=== PATIENT | female | born 1970 | race American Indian/Alaskan Native ===

== ENCOUNTER 2018-04-27 23:42 | Inpatient (IN) | payer BC ==
[2018-04-27 23:52] VITALS: BMI 38.2
[2018-04-28 00:50] LABS: BASO # 0.02 K/mm3 (0.0-2.0); BASO % 0.3 % (0.0-3.0); EOS # 0.1 (0.0-0.7); EOS % 2.4 % (1.5-5.0); GRAN # 2.91 (1.4-6.5); GRAN % 49.7 % (50.0-68.0); HEMOGLOBIN 11.8 g/dL (12.0-16.0); LYMPH # 2.5 (1.2-3.4); LYMPH % 41.8 % (22.0-35.0); MEAN CELL VOLUME 85.9 fl (80.0-105.0); MEAN CORPUSCULAR HEMOGLOBIN 29.1 pg (25.0-35.0); MEAN CORPUSCULAR HGB CONC 33.9 g/dl (31.0-37.0); MEAN PLATELET VOLUME 9.7 fl (7.0-11.0); MONO # 0.3 (0.1-0.6); MONO % 5.8 % (1.0-6.0); RBC 4.05 10^6/uL (3.5-6.1); RED CELL DISTRIBUTION WIDTH 12.5 % (11.5-14.5); WHITE BLOOD COUNT 5.9 10^3/ul (4.5-11.0)
[2018-04-28 00:57] LABS: VENOUS BLOOD GAS BASE EXCESS 2.9 mmol/L (0.0-2.0); VENOUS BLOOD GAS PO2 46 mm/Hg (30-55); VENOUS BLOOD PH 7.35 (7.32-7.43)
[2018-04-28 01:07] LABS: ALB/GLOB RATIO 1.4 (1.1-1.8); ALBUMIN 3.9 g/dL (3.0-4.8); ALT/SGPT 12 U/L (7-56); AST/SGOT 17 U/L (14-36); BLOOD UREA NITROGEN 12 mg/dL (7-21); CALCIUM 9.1 mg/dL (8.4-10.5); GFR NON-AFRICAN AMERICAN > 60
--- NOTE | 2018-04-28 01:16 | ED PDOC ---
Arrival/HPI - General Chief Complaint: Dizziness/Lightheaded Time Seen by Provider: 04/28/18 00:02 Historian: Patient - History of Present Illness Narrative History of Present Illness (Text): 04/28/18 01:01 47 year old female, whose past medical history includes hypertension, lymphedema , vertigo asymptomatic 3-4 years, and chronic back pain on Oxycodone, presents to the emergency department for evaluation. Patient was having dinner while sitting down when she began to feel the room spinning sensation and light- headed. Patient then began walking to her bedroom and fell landing on her right shoulder. She also hit the right side of her head on the door. Patient reports right shoulder pain, still feel dizzy with nausea, and headache, but denies any LOC, blurry vision, fever, chills, cough, chest pain, shortness of breath, vomiting, diarrhea, GI bleed, urinary symptoms, back pain, neck pain, focal weakness or numbness, or any other complaints. Symptom Onset: Sudden Activities at Onset: Light Context: Home Past Medical History - Provider Review Nursing Documentation Reviewed: Yes - Neurological Hx Vertigo: Yes - Psychiatric Hx Substance Use: No Family/Social History - Physician Review Nursing Documentation Reviewed: Yes Family/Social History: No Known Family HX Smoking Status: Never Smoked Hx Alcohol Use: No Hx Substance Use: No Allergies/Home Meds Allergies/Adverse Reactions: Allergies banana Allergy (Verified 04/27/18 23:51) ANAPHYLAXIS citric acid Allergy (Verified 04/27/18 23:51) ANAPHYLAXIS ibuprofen Allergy (Verified 04/27/18 23:51) ANAPHYLAXIS Sulfa (Sulfonamide Antibiotics) Allergy (Verified 04/27/18 23:51) ANAPHYLAXIS Review of Systems - Physician Review All systems were reviewed & negative as marked: Yes - Review of Systems Eyes: absent: Vision Changes Respiratory: absent: SOB, Cough Cardiovascular: absent: Chest Pain Gastrointestinal: Nausea. absent: Diarrhea, Vomiting Genitourinary Female: absent: Dysuria, Frequency, Hematuria Musculoskeletal: Other (right side shoulder pain). absent: Back Pain, Neck Pain Neurological: Headache, Dizziness. absent: Focal Weakness, Other (LOC) Physical Exam Vital Signs Reviewed: Yes Vital Signs Temp Pulse Resp BP Pulse Ox 04/28/18 00:02 97.9 F 52 L 18 123/75 99 Temperature: Afebrile Blood Pressure: Normal Pulse: Bradycardic Respiratory Rate: Normal Appearance: Positive for: Well-Appearing, Non-Toxic, Comfortable Pain Distress: None Mental Status: Positive for: Alert and Oriented X 3 - Systems Exam Head: Present: Atraumatic, Normocephalic Pupils: Present: PERRL Extroacular Muscles: Present: EOMI. No: Other (No nystagmus) Conjunctiva: Present: Normal Mouth: Present: Moist Mucous Membranes Neck: Present: Normal Range of Motion Respiratory/Chest: Present: Clear to Auscultation, Good Air Exchange. No: Respiratory Distress, Accessory Muscle Use Cardiovascular: Present: Regular Rate and Rhythm, Normal S1, S2. No: Murmurs Abdomen: No: Tenderness, Distention, Peritoneal Signs Back: Present: Normal Inspection Upper Extremity: Present: Normal Inspection, Normal ROM, NORMAL PULSES. No: Cyanosis, Edema, Deformity Lower Extremity: Present: Edema (2+ pitting edema) Neurological: Present: GCS=15, CN II-XII Intact, Speech Normal Skin: Present: Warm, Dry, Normal Color. No: Rashes Psychiatric: Present: Alert, Oriented x 3, Normal Insight, Normal Concentration Medical Decision Making ED Course and Treatment: 04/28/18 01:21 Impression: 47 year old female presents complaining of feeling room spinning sensation and light-headed. Patient also complaining of right shoulder pain s/p fall walking to her room landing on her shoulder and hitting the right side of head on a door. Plan: -- VBG -- CT Head w/o Contrast -- EKG -- Labs -- Chest X-ray -- Shoulder Right X-ray -- Urinalysis -- POC Urine Test -- Reassess and disposition Progress Notes: EXAM: CT Head Without Intravenous Contrast Dictated and Authenticated by: Tyler Cadet MD 04/28/2018 2:02 AM Eastern Time IMPRESSION: No acute findings. 04/28/18 02:23 Uhcg (-) EKG : SB at 52 bpm, no acute ST changes, as read by PA CXR Impression: As read by me, NAD Shoulder Right X-ray Impression: As read by me, negative for fracture or dislocation. Labs reviewed: Troponin negative. BNP negative. Urinalysis within normal limits. 04/28/18 02:25 Discussed with results and plan with patient. Advised further observations for symptomatic bradycardia, dizziness, and vertigo. Patient and family agree with the plan. 04/28/18 02:[address] Lopez who is aware and agrees with the plan. Accepts patient into hospitalist service. - Lab Interpretations Lab Results: 04/28/18 00:38 04/28/18 00:38 Lab Results 04/28/18 01:17: Urine Color Yellow, Urine Appearance Sl cloudy, Urine pH 6.0, Ur Specific [place] >= 1.030, Urine Protein Trace H, Urine Glucose (UA) Negative , Urine Ketones Trace H, Urine Blood Negative, Urine Nitrate Negative, Urine Bilirubin Negative, Urine Urobilinogen 1.0 H, Ur Leukocyte Esterase Negative, Urine RBC 0 - 2, Urine WBC 0 - 2, Ur Epithelial Cells 1 - 3, Urine Bacteria Rare 04/28/18 00:38: D-Dimer, Quantitative < 200 04/28/18 00:38: NT-Pro-B Natriuret Pep 63.9 04/28/18 00:38: Sodium 147, Chloride 108 H, Potassium 3.9, Carbon Dioxide 29, Anion Gap 14, BUN 12, Creatinine 0.7, Est GFR ( Amer) > 60, Est GFR (Non- Af Amer) > 60, Random Glucose 96, Calcium 9.1, Magnesium 2.0, Total Bilirubin 0.3, AST 17, ALT 12, Alkaline Phosphatase 59, Lactate Dehydrogenase 484, Total Creatine Kinase 55, Troponin I < 0.01, Total Protein 6.8, Albumin 3.9, Globulin 2.9, Albumin/Globulin Ratio 1.4 04/28/18 00:38: pO2 46, VBG pH 7.35, VBG pCO2 54.0, VBG HCO3 29.8 H, VBG Total CO2 31.5 H, VBG O2 Sat (Calc) 83.9 H, VBG Base Excess 2.9 H, VBG Potassium 3.8, Sodium 142.0, Chloride 109.0 H, Glucose 97, Lactate 0.7, FiO2 21.0, Venous Blood Potassium 3.8 04/28/18 00:38: WBC 5.9, RBC 4.05, Hgb 11.8 L, Hct 34.8 L, MCV 85.9, MCH 29.1, MCHC 33.9, RDW 12.5, Plt Count 199, MPV 9.7, Gran % 49.7 L, Lymph % (Auto) 41.8 H, [place] % (Auto) 5.8, Eos % (Auto) 2.4, Baso % (Auto) 0.3, Gran # 2.91, Lymph # (Auto) 2.5, [place] # (Auto) 0.3, Eos # (Auto) 0.1, Baso # (Auto) 0.02 I have reviewed the lab results: Yes - RAD Interpretation Radiology Orders: 04/28/18 00:03 CHEST TWO VIEWS (PA/LAT) [RAD] Stat 04/28/18 00:08 HEAD W/O CONTRAST [CT] Stat SHOULDER RIGHT [RAD] Stat - EKG Interpretation Interpreted by ED Physician: Yes Type: 12 lead EKG - Medication Orders Current Medication Orders: Acetaminophen (Tylenol 325mg Tab) 650 mg PO Q6H PRN PRN Reason: Pain, Mild (1-3) Albuterol/Ipratropium (Duoneb 3 Mg/0.5 Mg (3 Ml) Ud) 3 ml IH [id number] PRN PRN Reason: Shortness of Breath Cyclobenzaprine HCl (Flexeril) 5 mg PO TID PRN PRN Reason: muscle cramp Famotidine (Pepcid) 40 mg PO HS [facility] Last Admin: 04/28/18 21:16 Dose: 40 mg Heparin Sodium (Porcine) (Heparin) 5,000 units SC Q8 CHARLES PRN Reason: Protocol Last Admin: 04/28/18 21:15 Dose: 5,000 units Subcutaneous Administrations Document 04/28/18 21:15 CDL (Rec: 04/28/18 21:16 CDL [id number]) Injection Site MAR Injection Site Right Abdomen Charges for Administration # of Subcutaneous Administrations 1 Lisinopril (Zestril) 20 mg PO DAILY [facility] Last Admin: 04/28/18 09:53 Dose: 20 mg MAR Pulse and Blood Pressure Document 04/28/18 09:53 MARY (Rec: 04/28/18 09:53 MARY [id number]) Pulse Pulse Rate (60-90) 61 Blood Pressure Blood Pressure (100/60-150/90) 132/78 Oxycodone HCl (Oxycodone Immediate Release Tab) 30 mg PO Q4H PRN PRN Reason: Pain, severe (8-10) Last Admin: 04/28/18 21:16 Dose: 30 mg MAR Pain Assessment Document 04/28/18 21:16 CDL (Rec: 04/28/18 21:16 CDL [id number]) Pain Reassessment Is this a pain reassessment? No Sleep Is patient sleeping during reassessment? No Presence of Pain Presence of Pain Yes Pain Scale Used Pain Scale Used Numeric Location Pain Location Body Site Generalized Description Description Constant Intensity of Pain at present 8 Pain Behavior Moaning Restlessness Alleviating Factors/Management Medication Techniques Alleviating Factors Medication Pantoprazole Sodium (Protonix Ec Tab) 40 mg PO ONCE ONE Stop: 04/29/18 23:41 Discontinued Medications Al Hydrox/Mg Hydrox/Simethicone (Maalox Plus 30 Ml) 30 ml PO ONCE ONE Stop: 04/28/18 23:42 Last Admin: 04/28/18 23:50 Dose: 30 ml Morphine Sulfate (Morphine) 2 mg IVP STAT STA Stop: 04/28/18 04:47 Last Admin: 04/28/18 07:07 Dose: 2 mg MAR Pain Assessment Document 04/28/18 07:07 FG (Rec: 04/28/18 07:08 FG [id number]) Pain Reassessment Is this a pain reassessment? Yes Sleep Is patient sleeping during reassessment? No Presence of Pain Presence of Pain Yes Pain Scale Used Pain Scale Used Numeric Location Upper or Lower Lower Pain Location Body Site Back Description Description Constant Intensity of Pain at present 9 Pain Behavior Moaning Guarding Irritability Aggravating Factors Changing Position Contant Alleviating Factors/Management Medication Techniques Alleviating Factors Medication Pain not relieved and LIP/MD was No notified IVP Administration Document 04/28/18 07:07 FG (Rec: 04/28/18 07:08 FG [id number]) Charges for Administration # of IVP Administrations 1 Oxycodone HCl (Oxycodone Immediate Release Tab) 30 mg PO ONCE STA Stop: 04/28/18 03:05 Last Admin: 04/28/18 03:25 Dose: 30 mg MAR Pain Assessment Document 04/28/18 03:25 AD (Rec: 04/28/18 03:25 AD [id number]) Pain Reassessment Is this a pain reassessment? No Presence of Pain Presence of Pain Yes Pain Scale Used Pain Scale Used Numeric Location Pain Location Body Site Back Description Intensity of Pain at present 8 Pain Behavior Facial Grimacing Re-Assess: STEPHANIE Pain Assessment Document 04/28/18 04:25 FG (Rec: 04/28/18 07:09 FG [id number]) Pain Reassessment Is this a pain reassessment? Yes Sleep Is patient sleeping during reassessment? No Presence of Pain Presence of Pain Yes Pain Scale Used Pain Scale Used Numeric Location Upper or Lower Lower Pain Location Body Site Back Description Description Constant Intensity of Pain at present 9 Pain Behavior Moaning Aggravating Factors ADL's Changing Position Alleviating Factors/Management Medication Techniques Alleviating Factors Medication Pain not relieved and LIP/MD was No notified - PA / PIPELINE INTEGRITY ENGINEER / Resident Statement MD/DO has reviewed & agrees with the documentation as recorded. - Scribe Statement The provider has reviewed the documentation as recorded by the Losibnicolás Butler Provider Scribe Attestation: All medical record entries made by the Losibnicolás were at my direction and personally dictated by me. I have reviewed the chart and agree that the record accurately reflects my personal performance of the history, physical exam, medical decision making, and the department course for this patient. I have also personally directed, reviewed, and agree with the discharge instructions and disposition. Disposition/Present on Arrival - Present on Arrival Any Indicators Present on Arrival: No History of DVT/PE: No History of Uncontrolled Diabetes: No Urinary Catheter: No History of Decub. Ulcer: No History Surgical Site Infection Following: None - Disposition Have Diagnosis and Disposition been Completed?: Yes Diagnosis: Bradycardia, Vertigo Disposition: HOSPITALIZED Disposition Time: 02:15 Patient Plan: Observation Patient Problems: Current Active Problems Problem Status Onset Abnormal CT of brain Acute Bradycardia Acute Vertigo Acute Light headedness Resolved Condition: FAIR
[2018-04-28 01:18] LABS: TROPONIN I < 0.01 ng/mL
[2018-04-28 01:47] LABS: URINE BILIRUBIN NEGATIVE (NEGATIVE); URINE BLOOD NEGATIVE (NEGATIVE); URINE GLUCOSE (UA) NEGATIVE (NEGATIVE); URINE LEUKOCYTE ESTERASE NEGATIVE Leu/uL (NEGATIVE); URINE PROTEIN TRACE mg/dL (<30 mg/dL)
[2018-04-28 01:53] LABS: URINE COLOR YELLOW (YELLOW)
[2018-04-28 01:54] LABS: URINE APPEARANCE SL CLOUDY (CLEAR)
[2018-04-28 02:00] LABS: URINE BACTERIA RARE (NEG); URINE RBC 0 - 2 /hpf (0-2); URINE WBC 0 - 2 /hpf (0-6)
[2018-04-28] MEDS ORDERED: oxyCODONE 30 mg Immediate Release Tab PO STA (03:04)
[2018-04-28] MEDS ORDERED: Morphine 2 mg/ml ISec IVP STA (04:46)
--- NOTE | 2018-04-28 05:00 | CP.PCM.HP ---
<Rosette Dickinson - Last Filed: 04/28/18 05:19> History of Present Illness - History of Present Illness History of Present Illness: Rosette Dickinson PGY-1 for Hospitalist's Service CC: dizzy spell a/w lightheadedness HPI: Patient is a 47 yo female with PMH IN, HTN, spinal stenosis, disc herniation, asthma, vertigo, and lymphedema who presents to hospital for evaluation of lightheadedness that led to a fall at home. Patient states the symptoms started at 8:30 pm on 04/27 after dinner when she was trying to go to her bedroom. She began feeling lightheaded which caused her to fall hitting her right shoulder and right head on the door in the process. Patient's fiance at bedside confirmed that patient did not have LOC, post-ictal confusion , or any foaming/tonic-clonic movements. Patient says her lightheadedness has resolved but is having shoulder and head pain at the site of the fall. She describes the back pain as constant and chronic, head pain as throbbing, and shoulder pain as sharp. Patient has increased stress at home secondary to daughter moving in with recently delivered baby hindering her appetite intake and amount of sleep. Patient denies past episodes of any similar symptoms but does mention that she has a history of vertigo with last episode over 2-3 years ago. Patient does not take any medications for vertigo currently. Patient denies tinnitus, ear pain, fevers, chills, chest pain, sob, n/v, constipation or diarrhea, urinary symptoms, headaches, lightheadedness, dizziness, numbness or tingling. Patient does admit to head pain, back pain, right shoulder pain, and paresthesias. PMH- IN, HTN, spinal stenosis, disc herniation, asthma, vertigo, and lymphedema PSH- Cardiac Cath; Gastric bypass (mar 2017); cholecystectomy (6 years ago) FH: DM (Mom and Dad) Meds: Lisinopril 20mg po daily, oxycodon 30mg po q4h, tylenol; flexeril; quinine 324mg po daily Allergies: Ibuprofen, sulfa drugs, citric acid, bananas Social: Denies alcohol, tobacco, and drug use; lives home with family PMD: Dr. Keys Code: Full Code Present on Admission - Present on Admission Any Indicators Present on Admission: No Review of Systems - Review of Systems Review of Systems: 12 point ROS obtained as stated in HPI Past Patient History - Past Social History Smoking Status: Never Smoked - NEUROLOGICAL Hx Vertigo: Yes - PSYCHIATRIC Hx Substance Use: No Meds Allergies/Adverse Reactions: Allergies Allergy/AdvReac Type Severity Reaction Status Date / Time banana Allergy ANAPHYLAXIS Verified 04/27/18 23:51 citric acid Allergy ANAPHYLAXIS Verified 04/27/18 23:51 ibuprofen Allergy ANAPHYLAXIS Verified 04/27/18 23:51 Sulfa (Sulfonamide Allergy ANAPHYLAXIS Verified 04/27/18 23:51 Antibiotics) Physical Exam - Constitutional Appears: Non-toxic, No Acute Distress - Head Exam Head Exam: NORMAL INSPECTION, NORMOCEPHALIC - Eye Exam Eye Exam: EOMI, Normal appearance. absent: Nystagmus, Scleral icterus Pupil Exam: NORMAL ACCOMODATION - ENT Exam ENT Exam: Mucous Membranes Moist, Normal Exam - Neck Exam Neck exam: Positive for: Full Rom, Normal Inspection. Negative for: Tenderness - Respiratory Exam Respiratory Exam: Clear to Auscultation Bilateral, NORMAL BREATHING PATTERN. absent: Rales, Rhonchi, Wheezes - Cardiovascular Exam Cardiovascular Exam: Bradycardia, REGULAR RHYTHM, +S1, +S2 - GI/Abdominal Exam GI & Abdominal Exam: Normal Bowel Sounds, Soft. absent: Distended, Firm, Guarding, Tenderness - Extremities Exam Extremities exam: Positive for: normal inspection, pedal edema. Negative for: calf tenderness - Back Exam Back exam: NORMAL INSPECTION, tenderness, vertebral tenderness - Neurological Exam Neurological exam: Alert, Oriented x3 - Psychiatric Exam Psychiatric exam: Normal Affect, Normal Mood - Skin Skin Exam: Intact, Normal Color Results - Vital Signs Recent Vital Signs: Last Vital Signs Temp 97.9 F 04/28/18 00:02 Pulse 55 L 04/28/18 03:40 Resp 18 04/28/18 03:40 BP 129/72 04/28/18 03:40 Pulse Ox 100 04/28/18 03:40 - Labs Result Diagrams: 04/28/18 00:38 04/28/18 00:38 Assessment & Plan - Assessment and Plan (Free Text) Assessment: Patient is a 47 female who presents to the hospital for evaluation of lightheadedness a/w fall Plan: Lightheadedness/Dizziness w/ fall Neuro Consulted- Dr. Alon lane appreciated Cardio Consulted- Dr. Florence lane appreciated Trop <0.01; Repeat troponin pending; Unlikely due to symptomatic bradycardia- bradycardia likely due to pain meds; Unlikely due to anemia Unlikely due to seizures Likely orthostatic component with decreased appetite/water intake due to increased stress at home- orthostatics were limited due to severe back pain which elevated blood pressures to 175/105 seated and 187/108 standing 04/27 CT head pending full read - negative for acute bleed U/A shows S.G >1.030 (increases suspicion for possible dehydration leading to orthostatic) Christiano Hallpike maneuver negative Fall precautions HTN Lisinopril 20mg po daily Head pain 04/27 CT head pending full read - negative for acute bleed likely due to fall 1x dose of oxycodone stat 1x dose of morphine PRN: Oxy 30mg po q4h; Tylenol 650mg po q6h; R shoulder pain 04/27 Xray of shoulder- pending full read PRN: Oxy 30mg po q4h; Tylenol 650mg po q6h Anemia mild with Hgb 11.8 Repeat CBC in AM Hx of asthma Duoneb PRN PPX: DVT ppx: heparin 5000 units sc q8h GI ppx: Pepcid 40mg po HS <Jarret Lopez - Last Filed: 04/28/18 06:46> Results - Vital Signs Recent Vital Signs: Last Vital Signs Temp 97.9 F 04/28/18 00:02 Pulse 55 L 04/28/18 03:40 Resp 18 04/28/18 03:40 BP 129/72 04/28/18 03:40 Pulse Ox 100 04/28/18 03:40 - Labs Result Diagrams: 04/28/18 00:38 04/28/18 00:38 Attending/Attestation - Attestation I have personally seen and examined this patient.: Yes I have fully participated in the care of the patient.: Yes I have reviewed all pertinent clinical information: Yes Notes (Text): 04/28/18 06:45 Patient was seen when she was in the ER. Agree with history,physical examination, assessment and plan. Medical record was reviewed. This 47 year old woman with history of hypertension, lymphedema, chronic back pain, sciatica,spinal stenosis,asthma, HLD,vertigo,gastric bypass surgery,obesity, family history of DM is here with history of fall after feeling dizzy,lightheaded, ,no loss of consciousness, has no complaints now, will order neurocheck, cardiology consult,neurology consult , continue home medicines,seizure precautions, GI/DVT prophylaxis,D-Dimer,repeat labs, trend troponin, EKG.
[2018-04-28] MEDS ORDERED: Albuterol-Ipratrop 3 mg / 0.5 (3 ml) UD IH PRN (05:17)
--- NOTE | 2018-04-28 08:27 | CT ---
Date of service: 04/28/2018 PROCEDURE: CT HEAD WITHOUT CONTRAST. HISTORY: dizzy, head injury COMPARISON: None available. TECHNIQUE: Axial computed tomography images were obtained through the head/brain without intravenous contrast. Radiation dose: Total exam DLP = 915.63 mGy-cm. This CT exam was performed using one or more of the following dose reduction techniques: Automated exposure control, adjustment of the mA and/or kV according to patient size, and/or use of iterative reconstruction technique. FINDINGS: HEMORRHAGE: No intracranial hemorrhage. BRAIN: No mass effect or edema. There are symmetrical foci of calcification in the basal ganglia bilaterally. No atrophy or chronic microvascular ischemic changes. Incidentally noted is moderate enlargement of the sella turcica contains low-attenuation structure may represent the sella suprasellar cyst or other etiology. VENTRICLES: Unremarkable. No hydrocephalus. CALVARIUM: Unremarkable. PARANASAL SINUSES: Unremarkable as visualized. No significant inflammatory changes. MASTOID AIR CELLS: Unremarkable as visualized. No inflammatory changes. OTHER FINDINGS: None. IMPRESSION: No evidence of acute intracranial hemorrhage intracranial collection mass effect or midline shift. Moderate enlargement of the sella turcica contains low-attenuation structure which may represent a cyst. If clinically warranted further assessment by non emergent MRI of the pituitary and middle foosa without and with contrast may be obtained. Preliminary report was submitted by virtual Radiology.
[2018-04-28] MEDS: oxyCODONE 30 mg Immediate Release Tab PO PRN ×3 (08:47→21:16)
[2018-04-28 09:06] LABS: BASO # 0.02 K/mm3 (0.0-2.0); BASO % 0.4 % (0.0-3.0); EOS # 0.2 (0.0-0.7); GRAN # 2.1 (1.4-6.5); GRAN % 42.2 % (50.0-68.0); HEMOGLOBIN 11.3 g/dL (12.0-16.0); LYMPH # 2.4 (1.2-3.4); LYMPH % 48.2 % (22.0-35.0); MEAN CELL VOLUME 86.5 fl (80.0-105.0); MEAN CORPUSCULAR HEMOGLOBIN 28.8 pg (25.0-35.0); MEAN CORPUSCULAR HGB CONC 33.3 g/dl (31.0-37.0); MEAN PLATELET VOLUME 9.9 fl (7.0-11.0); MONO # 0.3 (0.1-0.6); MONO % 6.2 % (1.0-6.0); RBC 3.92 10^6/uL (3.5-6.1); RED CELL DISTRIBUTION WIDTH 12.6 % (11.5-14.5)
[2018-04-28 09:20] LABS: TROPONIN I < 0.01 ng/mL
[2018-04-28 09:23] LABS: ALB/GLOB RATIO 1.3 (1.1-1.8); ALBUMIN 3.6 g/dL (3.0-4.8); ALT/SGPT 22 U/L (7-56); AST/SGOT 14 U/L (14-36); BLOOD UREA NITROGEN 12 mg/dL (7-21); CALCIUM 8.8 mg/dL (8.4-10.5); GFR NON-AFRICAN AMERICAN > 60
--- NOTE | 2018-04-28 15:31 | RAD ---
Date of service: 04/28/2018 HISTORY: dizziness COMPARISON: No prior. TECHNIQUE: Chest PA and lateral FINDINGS: LUNGS: No active pulmonary disease. PLEURA: No significant pleural effusion identified. No pneumothorax apparent. CARDIOVASCULAR: Normal. OSSEOUS STRUCTURES: No significant abnormalities. VISUALIZED UPPER ABDOMEN: Normal. OTHER FINDINGS: None. IMPRESSION: No active disease.
--- NOTE | 2018-04-28 15:34 | RAD ---
Date of service: 04/28/2018 PROCEDURE: Radiographs of the Right Shoulder HISTORY: pain COMPARISON: No prior. FINDINGS: BONES: Normal. No fracture. JOINTS: . Glenohumeral and acromioclavicular joints preserved. Mild osteoarthritis. SOFT TISSUES: Normal. OTHER FINDINGS: None. IMPRESSION: No evidence of acute fracture or dislocation. Mild osteoarthritis.
--- NOTE | 2018-04-28 15:53 | CON ---
Copied To: David Silva MD Attending MD: David Silva MD DATE: 04/28/2018 HISTORY OF PRESENT ILLNESS: The patient is a 47-year-old female who has a history of spinal canal stenosis, history of hypertension, history of lymphedema, presented because of syncopal episode. The patient stated that she felt lightheaded and collapse and hit her head, but sustained no injury. The patient stated that she felt weak, but denies experiencing palpitation. The patient states that 4 years ago she underwent cardiac catheterization at [facility] and she was told she has no blockages. The patient was told that she has a slow heartbeat in the past, but was not recommended a pacemaker placement. SOCIAL HISTORY: The patient is a nonsmoker. MEDICATIONS: Albuterol inhaler every 4 hours p.r.n., Flexeril 5 mg t.i.d., heparin 5000 unit every 8 hours, Zestril 20 mg once a day. REVIEW OF SYSTEMS: No fever or chills. No nausea or vomiting. PHYSICAL EXAMINATION: GENERAL: The patient is an middle-aged female, who does not appear to be in any distress. VITAL SIGNS: Blood pressure 123/75, heart rate 60, temperature 97.9, respirations 18. HEENT: Normocephalic. CHEST: Clear. HEART: S1 and S2 regular. ABDOMEN: Soft. EXTREMITIES: Nonpitting edema. LABORATORY DATA: Hemoglobin and hematocrit 11.3 and 33.9. White count and platelet count are within normal limits. Today's SMA-7 is entirely within normal limit. Two sets of troponins are negative. D-dimer is within normal limit. PTT 34. EKG reveals sinus bradycardia at the rate of 54, otherwise normal. TSH level is ordered, but is still pending. Head CT scan without contrast: No evidence of intracranial hemorrhage, intracranial collection, mass effects or midline shifts. Moderate enlargement in the sella turcica, which may represent a cyst. ASSESSMENT: 1. Syncopal episode. 2. Mildly enlarged sella turcica on the CAT scan of the head. 3. Sinus bradycardia, unlikely symptomatic. 4. Hypertension. RECOMMENDATIONS: Continue subcutaneous heparin 5000 units every 8 hours, Zestril 20 mg once a day. Follow up TSH level. Obtain an echocardiogram and brain MRI. David Silva MD [facility] # [id number]
--- NOTE | 2018-04-28 17:03 | CP.PCM.CON ---
History of Present Illness - History of Present Illness History of Present Illness: Neurology Consult Note: Mrs. Nevarez is a 47-year-old woman with a past medical history of [place], HTN, spinal stenosis, disc herniation, asthma, vertigo, and lymphedema who presented to the ED for an episode of light-headedness, fall, no LOC after having dinner and attempting to go to bed. She hit her shoulder on the right and the right side of her head. CT scan of the head did not show any acute findings. There is a possible mass in the sellar region. Review of Systems - Review of Systems All systems: reviewed and no additional remarkable complaints except Past Patient History - Past Social History Smoking Status: Never Smoked - CARDIAC Hx Cardiac Disorders: Yes ([place]) Hx Hypercholesterolemia: Yes Hx Hypertension: Yes - PULMONARY Hx Asthma: Yes - NEUROLOGICAL Hx Vertigo: Yes - HEENT Hx HEENT Problems: No - RENAL Hx Chronic Kidney Disease: No - ENDOCRINE/METABOLIC Hx Endocrine Disorders: No - HEMATOLOGICAL/ONCOLOGICAL Hx Blood Disorders: No - INTEGUMENTARY Hx Dermatological Problems: No - MUSCULOSKELETAL/RHEUMATOLOGICAL Hx Back Pain: Yes Hx Falls: Yes Hx Spinal Stenosis: Yes Hx Unsteady Gait: Yes - GASTROINTESTINAL Hx Gall Bladder Disease: Yes - GENITOURINARY/GYNECOLOGICAL Hx Genitourinary Disorders: No - PSYCHIATRIC Hx Substance Use: No - SURGICAL HISTORY Hx Surgeries: Yes Hx Gastric Bypass Surgery: Yes Meds Allergies/Adverse Reactions: Allergies Allergy/AdvReac Type Severity Reaction Status Date / Time banana Allergy ANAPHYLAXIS Verified 04/27/18 23:51 citric acid Allergy ANAPHYLAXIS Verified 04/27/18 23:51 ibuprofen Allergy ANAPHYLAXIS Verified 04/27/18 23:51 Sulfa (Sulfonamide Allergy ANAPHYLAXIS Verified 04/27/18 23:51 Antibiotics) - Medications Medications: Current Medications Acetaminophen (Tylenol 325mg Tab) 650 mg PO Q6H PRN PRN Reason: Pain, Mild (1-3) Albuterol/Ipratropium (Duoneb 3 Mg/0.5 Mg (3 Ml) Ud) 3 ml IH [id number] PRN PRN Reason: Shortness of Breath Cyclobenzaprine HCl (Flexeril) 5 mg PO TID PRN PRN Reason: muscle cramp Famotidine (Pepcid) 40 mg PO HS CHARLES Heparin Sodium (Porcine) (Heparin) 5,000 units SC Q8 CHARLES PRN Reason: Protocol Last Admin: 04/28/18 14:50 Dose: Not Given Lisinopril (Zestril) 20 mg PO DAILY CHARLES Last Admin: 04/28/18 09:53 Dose: 20 mg Oxycodone HCl (Oxycodone Immediate Release Tab) 30 mg PO Q4H PRN PRN Reason: Pain, severe (8-10) Last Admin: 04/28/18 15:16 Dose: 30 mg Physical Exam - Neurological Exam Neurological exam: Alert, CN II-XII Intact, Normal Gait, Oriented x3, Reflexes Normal Results - Vital Signs Recent Vital Signs: Last Vital Signs Temp 97.9 F 04/28/18 12:00 Pulse 57 L 04/28/18 12:00 Resp 18 04/28/18 12:00 BP 121/70 04/28/18 12:00 Pulse Ox 99 04/28/18 06:00 - Labs Result Diagrams: 04/28/18 08:30 04/28/18 08:30 Labs: Laboratory Results - last 24 hr 04/28/18 04/28/18 04/28/18 08:30 08:30 08:30 WBC 5.0 RBC 3.92 Hgb 11.3 L Hct 33.9 L MCV 86.5 MCH 28.8 MCHC 33.3 RDW 12.6 Plt Count 181 MPV 9.9 Gran % 42.2 L Lymph % (Auto) 48.2 H Will % (Auto) 6.2 H Eos % (Auto) 3.0 Baso % (Auto) 0.4 Gran # 2.10 Lymph # (Auto) 2.4 Will # (Auto) 0.3 Eos # (Auto) 0.2 Baso # (Auto) 0.02 APTT 34.0 Sodium 143 Potassium 3.9 Chloride 106 Carbon Dioxide 29 Anion Gap 12 BUN 12 Creatinine 0.7 Est GFR ( Amer) > 60 Est GFR (Non-Af Amer) > 60 Random Glucose 93 Calcium 8.8 Phosphorus 4.1 Magnesium 2.0 Total Bilirubin 0.4 AST 14 ALT 22 Alkaline Phosphatase 52 Troponin I < 0.01 Total Protein 6.3 Albumin 3.6 Globulin 2.7 Albumin/Globulin Ratio 1.3 Assessment & Plan (1) Light headedness Assessment and Plan: May be due to vaso-vagal effects, or due to bradycardia. The patient is currently asymptomatic. Continue cardiac work-up. Status: Resolved (2) Abnormal CT of brain Assessment and Plan: Will obtain MRI of the brain for further evaluation and follow up. Status: Acute
--- NOTE | 2018-04-28 22:07 | CARD ---
APPROVED REPORT Date of service: 04/28/2018 EKG Measurement Heart [id number] <Conclusion> Sinus bradycardia Otherwise normal ECG
--- NOTE | 2018-04-28 22:10 | CARD ---
APPROVED REPORT Date of service: 04/27/2018 EKG Measurement Heart [id number] <Conclusion> Sinus bradycardia Otherwise normal ECG
[2018-04-28] MEDS ORDERED: Alum-Mag Hydrox-Simethicone Susp (30 mL) PO ONE (23:41)
[2018-04-29] MEDS: oxyCODONE 30 mg Immediate Release Tab PO PRN ×5 (02:18→21:39)
--- NOTE | 2018-04-29 06:02 | CP.PCM.PN ---
Subjective - Date & Time of Evaluation Date of Evaluation: 04/29/18 Time of Evaluation: 06:00 - Subjective Subjective: Pt seen and examined this morning at bedside. Pt denies chest pain, SOB, dizziness, lightheadedness, nausea, or vomiting. Pt has no new complaints at this time. Objective - Vital Signs/Intake and Output Vital Signs (last 24 hours): Temp Pulse Resp BP Pulse Ox 98.2 F 58 L 20 136/77 96 04/29/18 00:01 04/29/18 04:58 04/29/18 00:01 04/29/18 00:01 04/29/18 00:01 Intake and Output: 04/28/18 04/29/18 18:59 06:59 Intake Total 240 Output Total 0 Balance 240 - Medications Medications: Current Medications Acetaminophen (Tylenol 325mg Tab) 650 mg PO Q6H PRN PRN Reason: Pain, Mild (1-3) Albuterol/Ipratropium (Duoneb 3 Mg/0.5 Mg (3 Ml) Ud) 3 ml IH [id number] PRN PRN Reason: Shortness of Breath Cyclobenzaprine HCl (Flexeril) 5 mg PO TID PRN PRN Reason: muscle cramp Famotidine (Pepcid) 40 mg PO HS [facility] Last Admin: 04/28/18 21:16 Dose: 40 mg Heparin Sodium (Porcine) (Heparin) 5,000 units SC Q8 CHARLES PRN Reason: Protocol Last Admin: 04/28/18 21:15 Dose: 5,000 units Lisinopril (Zestril) 20 mg PO DAILY [facility] Last Admin: 04/28/18 09:53 Dose: 20 mg Oxycodone HCl (Oxycodone Immediate Release Tab) 30 mg PO Q4H PRN PRN Reason: Pain, severe (8-10) Last Admin: 04/29/18 02:18 Dose: 30 mg Pantoprazole Sodium (Protonix Ec Tab) 40 mg PO ONCE ONE Stop: 04/29/18 23:41 - Labs Labs: 04/28/18 08:30 04/28/18 08:30 APTT 34.0 Seconds (25.1-36.5) 04/28/18 08:30 - Constitutional Appears: No Acute Distress - Head Exam Head Exam: ATRAUMATIC, NORMOCEPHALIC - Eye Exam Eye Exam: EOMI - ENT Exam ENT Exam: Mucous Membranes Moist - Neck Exam Neck Exam: Full ROM - Respiratory Exam Respiratory Exam: Clear to Ausculation Bilateral, NORMAL BREATHING PATTERN. absent: Accessory Muscle Use, Rales, Rhonchi, Respiratory Distress, Stridor - Cardiovascular Exam Cardiovascular Exam: REGULAR RHYTHM, +S1, +S2. absent: Diastolic murmur, JVD - GI/Abdominal Exam GI & Abdominal Exam: Soft, Normal Bowel Sounds. absent: Guarding, Rigid, Tenderness - Extremities Exam Extremities Exam: Full ROM. absent: Calf Tenderness - Back Exam Back Exam: absent: CVA tenderness (L), CVA tenderness (R) Additional comments: pt reports some chronic back pain to palpation - Neurological Exam Neurological Exam: Alert, Awake, Oriented x3 - Psychiatric Exam Psychiatric exam: Normal Affect, Normal Mood - Skin Skin Exam: Dry, Normal Color, Warm Assessment and Plan - Assessment and Plan (Free Text) Assessment: Patient is a 47 yo female with a PMH of [place], HTN, spinal stenosis, disc herniation, asthma, and vertigo who presents to the hospital for evaluation of lightheadedness after a fall. Plan: Syncope/ Fall/ Dizziness - Neuro: may be due to vaso-vagal effects or bradycardia - Trop NEGATIVE x2 - CT head: no evidence of acute intracranial hemorrhage, incidental cyst - MRI Head: unremarkable, incidental benign cystic structure at the right temporal bone - carotid US: BL 20-39% proximal ICA stenosis - ECHO: unremarkable - continue oxycodone 30mg PO q4h prn for pain - PT eval and treat Shoulder Pain - x ray: no evidence of fracture of dislocation HTN - continue home lisinopril Anemia - Hgb 11.7, stable normocytic normochromic Asthma - continue duoneb PRN Ppx - continue lovenox - continue pantoprazole - regular diet Pt seen, examined, and assessment/ plan discussed with Dr Larkin. Julio Tam PGY1, Internal Medicine Resident
--- NOTE | 2018-04-29 08:47 | CP.PCM.PN ---
Subjective - Date & Time of Evaluation Date of Evaluation: 04/29/18 Time of Evaluation: 10:00 - Subjective Subjective: PGY-1 Narcisa Gomes D.O. Neurology progress note for Dr. Monk's service; Patient is seen and examined this morning. No events reported over night. Patient is complaining of significant back pain and spasms after being transferred from stretcher to bed via standing with PT. The patient states she feels better lying on her side than on her back. She denies anymore episodes of lightheadedness. She reports that she usually walks at home independently. 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 The patient denies dizziness/vertigo. She denies frequent falls. She denies any focal neurological deficits, including weakness, paralysis, numbness/tingling. She lives with her fiance, daughter, and son-in-law. Her PMD, Dr. Keys, referred her to a pain management physician , and she has her first appointment scheduled for 05/14. Objective - Vital Signs/Intake and Output Vital Signs (last 24 hours): Temp Pulse Resp BP Pulse Ox 98.2 F 60 20 135/76 96 04/29/18 06:00 04/29/18 06:00 04/29/18 06:00 04/29/18 06:00 04/29/18 06:00 Intake and Output: 04/29/18 04/29/18 06:59 18:59 Intake Total 240 Output Total 0 Balance 240 - Medications Medications: Current Medications Acetaminophen (Tylenol 325mg Tab) 650 mg PO Q6H PRN PRN Reason: Pain, Mild (1-3) Albuterol/Ipratropium (Duoneb 3 Mg/0.5 Mg (3 Ml) Ud) 3 ml IH [id number] PRN PRN Reason: Shortness of Breath Cyclobenzaprine HCl (Flexeril) 5 mg PO TID PRN PRN Reason: muscle cramp Famotidine (Pepcid) 40 mg PO HS CHARLES Last Admin: 04/28/18 21:16 Dose: 40 mg Heparin Sodium (Porcine) (Heparin) 5,000 units SC Q8 CHARLES PRN Reason: Protocol Last Admin: 04/29/18 06:08 Dose: 5,000 units Lisinopril (Zestril) 20 mg PO DAILY CHARLES Last Admin: 04/28/18 09:53 Dose: 20 mg Oxycodone HCl (Oxycodone Immediate Release Tab) 30 mg PO Q4H PRN PRN Reason: Pain, severe (8-10) Last Admin: 04/29/18 06:08 Dose: 30 mg Pantoprazole Sodium (Protonix Ec Tab) 40 mg PO ONCE ONE Stop: 04/29/18 23:41 - Labs Labs: 04/28/18 08:30 04/28/18 08:30 APTT 34.0 Seconds (25.1-36.5) 04/28/18 08:30 - Constitutional Appears: Non-toxic, In Acute Distress (c/o significant back pain but able to be calmed) - Head Exam Head Exam: ATRAUMATIC, NORMAL INSPECTION, NORMOCEPHALIC - Eye Exam Eye Exam: EOMI, Normal appearance, PERRL - ENT Exam ENT Exam: Mucous Membranes Moist, Normal Exam - Neck Exam Neck Exam: Normal Inspection - Respiratory Exam Respiratory Exam: Clear to Ausculation Bilateral - Cardiovascular Exam Cardiovascular Exam: REGULAR RHYTHM - GI/Abdominal Exam GI & Abdominal Exam: Soft Additional comments: obese - Rectal Exam Rectal Exam: Deferred - Extremities Exam Extremities Exam: Normal Inspection - Neurological Exam Neurological Exam: Alert, Awake, CN II-XII Intact, Oriented x3 Neuro motor strength exam: Left Upper Extremity: 5, Right Upper Extremity: 5, Left Lower Extremity: 5, Right Lower Extremity: 5 Additional comments: no gross motor or sensory deficits unsteady/antalgic gait - Psychiatric Exam Psychiatric exam: Anxious - Skin Skin Exam: Dry, Intact, Normal Color, Warm Assessment and Plan - Assessment and Plan (Free Text) Assessment: Patient is a 47 yo female who presented s/p fall with lightheadedness. Patient endorses head trauma but denies LOC. CT head was negative for acute pathology but shows a sellar mass. Patient denies frequent falls. She denies FND and only complains of pain at this time. Plan: Fall with lightheadedness, resolved- suspect vaso-vagal/cardiac or mechanical, r /o intracranial pathology, CVA - Fall precautions - CT head: negative for acute pathology, presence of possible sellar mass- unlikely to cause acute symptoms - R shoulder XR: no acute pathology - Carotid artery u/s: 20-39% stenosis of b/l ICAs - F/u MRI brain- can be done as outpatient - F/u echo - Eunice Hallpike maneuver negative - D-dimer <200 - TSH wnl (2.34) - HR 50s-60s- possibly lightheadedness 2/2 episode of bradycardia - Orthostatics - Cardiology consulted Chronic back pain- exacerbated by fall - F/u lumbar MRI - Pain management as per primary team - Patient reports bring on oxycodone, Flexeril, and quinine at home - Currently on oxycodone 30 mg PO q4hrs PRN, Flexeril 5 mg PO TID PRN - PT- rec [facility] Case discussed with attending, Dr. Monk.
[2018-04-29 09:08] LABS: BASO # 0.01 K/mm3 (0.0-2.0); BASO % 0.2 % (0.0-3.0); EOS # 0.1 (0.0-0.7); EOS % 2.7 % (1.5-5.0); GRAN # 2.48 (1.4-6.5); GRAN % 50.8 % (50.0-68.0); HEMOGLOBIN 11.7 g/dL (12.0-16.0); LYMPH # 2.1 (1.2-3.4); LYMPH % 42.6 % (22.0-35.0); MEAN CELL VOLUME 86.3 fl (80.0-105.0); MEAN CORPUSCULAR HEMOGLOBIN 28.7 pg (25.0-35.0); MEAN CORPUSCULAR HGB CONC 33.2 g/dl (31.0-37.0); MEAN PLATELET VOLUME 9.9 fl (7.0-11.0); MONO # 0.2 (0.1-0.6); MONO % 3.7 % (1.0-6.0); RBC 4.08 10^6/uL (3.5-6.1); RED CELL DISTRIBUTION WIDTH 12.4 % (11.5-14.5); WHITE BLOOD COUNT 4.9 10^3/ul (4.5-11.0)
[2018-04-29 09:19] LABS: ALB/GLOB RATIO 1.3 (1.1-1.8); ALBUMIN 3.6 g/dL (3.0-4.8); ALT/SGPT 16 U/L (7-56); AST/SGOT 16 U/L (14-36); BLOOD UREA NITROGEN 11 mg/dL (7-21); CALCIUM 8.7 mg/dL (8.4-10.5); GFR NON-AFRICAN AMERICAN > 60
--- NOTE | 2018-04-29 15:07 | US ---
PROCEDURE: Bilateral carotid artery duplex ultrasound HISTORY: Carotid stenosis syncope PHYSICIAN(S): Balbir Pascual MD. TECHNIQUE: Duplex sonography and color-flow Doppler were used to evaluate the carotid bifurcations and limited segments of the vertebral arteries bilaterally. FINDINGS: The exam is somewhat limited by body habitus There is mild smooth heterogeneous plaque noted at the carotid bifurcations bilaterally. The peak systolic velocity in the proximal right internal carotid artery is 64 cm/sec. This corresponds to a 20 to 39% proximal right ICA stenosis. Normal systolic velocities are noted in the proximal right external carotid artery. There is antegrade flow in the right vertebral artery. The peak systolic velocity in the proximal left internal carotid artery is 79 cm/sec. This corresponds to a 20 to 39% proximal left ICA stenosis. Normal systolic velocities are noted in the proximal left external carotid artery. There is antegrade flow in the left vertebral artery. IMPRESSION: 1. Bilateral 20-39% proximal ICA stenoses. 2. Antegrade flow in both vertebral arteries.
--- NOTE | 2018-04-29 15:50 | PN ---
Copied To: Balbir Trevino MD Attending MD: Balbir Trevino MD DATE: 04/29/2018 CARDIOLOGY FOLLOWUP SUBJECTIVE: The patient is resting comfortably. PHYSICAL EXAMINATION VITAL SIGNS: Blood pressure is 158/90, the heart rate is in the 60s. NECK: Negative JVD. LUNGS: Without rales. HEART: Reveals S1 and S2. EXTREMITIES: Without edema. LABORATORY DATA: BUN and creatinine unremarkable. Troponins are negative x2. Hemoglobin is 11.7. The TSH is 2.3. Echocardiogram is pending. IMPRESSION: 1. Sinus bradycardia. 2. Syncope. 3. History of hypertension. 4. History of asthma. PLAN: Given these findings, we will continue on telemetry for the next 24 hours. We will review the CT scan of the head, which is pending as well as the echocardiogram, which is pending. Balbir Trevino MD
--- NOTE | 2018-04-29 19:38 | MRI ---
Date of service: 04/29/2018 PROCEDURE: MRI BRAIN WITHOUT CONTRAST HISTORY: evaluation of sella mass COMPARISON: Head CT without contrast 04/28/2018. TECHNIQUE: Multiplanar, multisequence MR images of the brain were obtained without intravenous contrast enhancement. FINDINGS: HEMORRHAGE: None DWI: No evidence of an acute or early subacute infarction. BRAIN PARENCHYMA: Intrinsic signal throughout the ocasio and white matter structures above below the tentorium appears within normal limits including the brainstem. There is no mass effect, parenchymal edema or loss of the corticomedullary differentiation. Midline brain anatomy appears within normal limits including the corpus callosum, brainstem and craniocervical junction. There is no suspicious extra-axial fluid collection identified. VENTRICLES: Unremarkable. No hydrocephalus. CRANIUM: The cranium appears intact however images through the skullbase reveal long TR signal at the right christian bone suspicious for likely benign cystic structure. ORBITS: Grossly unremarkable. PARANASAL SINUSES/MASTOIDS: Clear VASCULAR SYSTEM: Skull base flow voids intact. OTHER FINDINGS: None. IMPRESSION: Unremarkable non contrast enhanced MRI of the brain. Incidental note is made of benign cystic structure at the right christian bone at the skull base inferiorly.
--- NOTE | 2018-04-29 19:46 | MRI ---
Date of service: 04/29/2018 PROCEDURE: MR LUMBAR SPINE WITHOUT CONTRAST HISTORY: lower back pain COMPARISON: None available. TECHNIQUE: Multiecho multiplanar sequences were performed through the lumbar spine without the use of intravenous contrast. FINDINGS: Normal lumbar lordosis. Vertebral body heights are preserved. Marrow signal unremarkable. Conus medullaris unremarkable at the level of L1 inferior endplate. Paraspinal soft tissues are unremarkable. It is presumed that L5 is not transitional. No other cross-sectional imaging is available to corroborate this suspicion and the same vertebral body may represent S1 instead. T12-L1: No disc herniation, spinal canal stenosis or neural foraminal narrowing. L1-2: No disc herniation, spinal canal stenosis or neural foraminal narrowing. L2-3: No disc herniation, spinal canal stenosis or neural foraminal narrowing. L3-4: No disc herniation, spinal canal stenosis or neural foraminal narrowing. L4-5: Gross facet joint degenerative changes are identified combining with generalized disc bulging resulting in a moderate central canal stenosis and mild bilateral neural foraminal stenoses. Bilateral facet joint effusions are identified without involving the epidural spaces bilaterally. No disc herniation. L5-S1: No disc herniation, spinal canal stenosis or neural foraminal narrowing. OTHER FINDINGS: None. IMPRESSION: A moderate degenerative central stenosis and mild bilateral neural foraminal stenoses are identified on the basis of generalized disc bulging and gross facet joint degenerative arthropathy at L4-5. This presumes that L5 is not transitional as discussed above. This can be confirmed by thoracolumbar spine CT. Advanced inferior lumbar spine multilevel facet arthropathy. No fracture or spondylolisthesis appreciated on an acute basis.
--- NOTE | 2018-04-29 20:19 | CARD ---
APPROVED REPORT Date of service: 04/29/2018 EXAM: Two-dimensional and M-mode echocardiogram with Doppler and color Doppler. INDICATION PRE-SYNCOPE 2D DIMENSIONS Left Atrium (2D)3.3 (1.6-4.0cm)IVSd1.4 (0.7-1.1cm) LVDd3.9 (3.9-5.9cm)PWd1.3 (0.7-1.1cm) LVDs2.9 (2.5-4.0cm)FS (%) 26.0 % LVEF (%)51.8 (>50%) M-Mode DIMENSIONS Aortic Root2.40 (2.2-3.7cm)Aortic Cusp Exc.1.80 (1.5-2.0cm) Aortic Valve AoV Peak Crcydprq068.0cm/Gemma Peak GR.7mmHg Mitral Valve MV E Uansgexg67.3cm/sMV A Riznzxtc74.7cm/sE/A ratio1.2 TDI E/Lateral E'0.0E/Medial E'0.0 Tricuspid Valve TR Peak [id number] [id number] Peak Gr.13mmHg [id number] LEFT VENTRICLE The left ventricle is normal size. There is mild concentric left ventricular hypertrophy. The left ventricular function is normal. The left ventricular ejection fraction is within the normal range. There is normal LV segmental wall motion. The left ventricular diastolic function is normal. No left ventricle thrombus noted on this study. RIGHT VENTRICLE The right ventricle is normal size. There is normal right ventricular wall thickness. The right ventricular systolic function is normal. ATRIA The left atrium size is normal. The right atrium size is normal. AORTIC VALVE The aortic valve is not well visualized. No aortic regurgitation is present. There is no aortic valvular stenosis. MITRAL VALVE The mitral valve is normal in structure. Mitral regurgitation is trace. There is no mitral valve stenosis. TRICUSPID VALVE The tricuspid valve is normal in structure. There is trace tricuspid regurgitation. PULMONIC VALVE The pulmonary valve is normal in structure. There is no pulmonic valvular regurgitation. GREAT VESSELS The aortic root is normal in size. The IVC is dilated. PERICARDIAL EFFUSION There is no pericardial effusion. <Conclusion> There is mild concentric left ventricular hypertrophy. The left ventricular function is normal. The left ventricular ejection fraction is within the normal range. There is normal LV segmental wall motion. The left ventricular diastolic function is normal.
[2018-04-29] MEDS ORDERED: Pantoprazole 40 mg EC Tab PO ONE (23:40)
[2018-04-30] MEDS: oxyCODONE 30 mg Immediate Release Tab PO PRN ×3 (05:26→14:47)
--- NOTE | 2018-04-30 05:28 | CP.PCM.DIS ---
Provider - Provider Date of Admission: 04/28/18 02:32 Attending physician: Joshua Larkin MD Primary care physician: Yamile Keys Consults: Cardio Neuro Time Spent in preparation of Discharge (in minutes): 45 Diagnosis - Discharge Diagnosis (1) Vertigo Status: Acute Priority: High (2) Spinal stenosis Status: Acute Priority: Low (3) Abnormal CT of brain Status: Acute Priority: Low (4) Bradycardia Status: Acute Priority: Medium (5) Light headedness Status: Resolved Priority: High Hospital Course - Lab Results Lab Results: Most Recent Lab Values WBC 4.9 10^3/ul (4.5-11.0) 04/29/18 08:30 RBC 4.08 10^6/uL (3.5-6.1) 04/29/18 08:30 Hgb 11.7 g/dL (12.0-16.0) L 04/29/18 08:30 Hct 35.2 % (36.0-48.0) L 04/29/18 08:30 MCV 86.3 fl (80.0-105.0) 04/29/18 08:30 MCH 28.7 pg (25.0-35.0) 04/29/18 08:30 MCHC 33.2 g/dl (31.0-37.0) 04/29/18 08:30 RDW 12.4 % (11.5-14.5) 04/29/18 08:30 Plt Count 180 10^3/uL (120.0-450.0) 04/29/18 08:30 MPV 9.9 fl (7.0-11.0) 04/29/18 08:30 Gran % 50.8 % (50.0-68.0) 04/29/18 08:30 Lymph % (Auto) 42.6 % (22.0-35.0) H 04/29/18 08:30 [place] % (Auto) 3.7 % (1.0-6.0) 04/29/18 08:30 Eos % (Auto) 2.7 % (1.5-5.0) 04/29/18 08:30 Baso % (Auto) 0.2 % (0.0-3.0) 04/29/18 08:30 Gran # 2.48 (1.4-6.5) 04/29/18 08:30 Lymph # (Auto) 2.1 (1.2-3.4) 04/29/18 08:30 [place] # (Auto) 0.2 (0.1-0.6) 04/29/18 08:30 Eos # (Auto) 0.1 (0.0-0.7) 04/29/18 08:30 Baso # (Auto) 0.01 K/mm3 (0.0-2.0) 04/29/18 08:30 APTT 34.0 Seconds (25.1-36.5) 04/28/18 08:30 D-Dimer, Quantitative < 200 ng/mlDDU (0-243) 04/28/18 00:38 pO2 46 mm/Hg (30-55) 04/28/18 00:38 VBG pH 7.35 (7.32-7.43) 04/28/18 00:38 VBG pCO2 54.0 (40-60) 04/28/18 00:38 VBG HCO3 29.8 mmol/l (21-28) H 04/28/18 00:38 VBG Total CO2 31.5 mmol.L (22-28) H 04/28/18 00:38 VBG O2 Sat (Calc) 83.9 % (40-65) H 04/28/18 00:38 VBG Base Excess 2.9 mmol/L (0.0-2.0) H 04/28/18 00:38 VBG Potassium 3.8 mmol/L (3.6-5.2) 04/28/18 00:38 Sodium 142.0 mmol/L (132-148) 04/28/18 00:38 Chloride 109.0 mmol/L (98-107) H 04/28/18 00:38 Glucose 97 mg/dl (65-105) 04/28/18 00:38 Lactate 0.7 mmol/L (0.7-2.1) 04/28/18 00:38 FiO2 21.0 % 04/28/18 00:38 Sodium 144 mmol/L (132-148) 04/29/18 08:30 Potassium 4.1 mmol/L (3.6-5.0) 04/29/18 08:30 Chloride 108 mmol/L (98-107) H 04/29/18 08:30 Carbon Dioxide 27 mmol/L (21-33) 04/29/18 08:30 Anion Gap 13 (10-20) 04/29/18 08:30 BUN 11 mg/dL (7-21) 04/29/18 08:30 Creatinine 0.7 mg/dl (0.7-1.2) 04/29/18 08:30 Est GFR ( Amer) > 60 04/29/18 08:30 Est GFR (Non-Af Amer) > 60 04/29/18 08:30 Random Glucose 114 mg/dL (70-110) H 04/29/18 08:30 Calcium 8.7 mg/dL (8.4-10.5) 04/29/18 08:30 Phosphorus 4.5 mg/dL (2.5-4.5) 04/29/18 08:30 Magnesium 2.0 mg/dL (1.7-2.2) 04/29/18 08:30 Total Bilirubin 0.4 mg/dL (0.2-1.3) 04/29/18 08:30 AST 16 U/L (14-36) 04/29/18 08:30 ALT 16 U/L (7-56) 04/29/18 08:30 Alkaline Phosphatase 57 U/L (38-126) 04/29/18 08:30 Lactate Dehydrogenase 484 U/L (333-699) 04/28/18 00:38 Total Creatine Kinase 55 U/L (35-230) 04/28/18 00:38 Troponin I < 0.01 ng/mL 04/28/18 08:30 NT-Pro-B Natriuret Pep 63.9 pg/mL (0-450) 04/28/18 00:38 Total Protein 6.3 g/dL (5.8-8.3) 04/29/18 08:30 Albumin 3.6 g/dL (3.0-4.8) 04/29/18 08:30 Globulin 2.8 gm/dL 04/29/18 08:30 Albumin/Globulin Ratio 1.3 (1.1-1.8) 04/29/18 08:30 TSH 3rd Generation 2.34 mIU/mL (0.46-4.68) 04/29/18 08:30 Venous Blood Potassium 3.8 mmol/L (3.6-5.2) 04/28/18 00:38 Urine Color Yellow (YELLOW) 04/28/18 01:17 Urine Appearance Sl cloudy (CLEAR) 04/28/18 01:17 Urine pH 6.0 (4.7-8.0) 04/28/18 01:17 Ur Specific [place] >= 1.030 (1.005-1.035) 04/28/18 01:17 Urine Protein Trace mg/dL (<30 mg/dL) H 04/28/18 01:17 Urine Glucose (UA) Negative mg/dL (NEGATIVE) 04/28/18 01:17 Urine Ketones Trace mg/dL (NEGATIVE) H 04/28/18 01:17 Urine Blood Negative (NEGATIVE) 04/28/18 01:17 Urine Nitrate Negative (NEGATIVE) 04/28/18 01:17 Urine Bilirubin Negative (NEGATIVE) 04/28/18 01:17 Urine Urobilinogen 1.0 E.U./dL (<1 E.U./dL) H 04/28/18 01:17 Ur Leukocyte Esterase Negative [place]/uL (NEGATIVE) 04/28/18 01:17 Urine RBC 0 - 2 /hpf (0-2) 04/28/18 01:17 Urine WBC 0 - 2 /hpf (0-6) 04/28/18 01:17 Ur Epithelial Cells 1 - 3 /hpf (0-5) 04/28/18 01:17 Urine Bacteria Rare (NEG) 04/28/18 01:17 - Hospital Course Hospital Course: Pt is a 47 yo female who presented to the ED for lightheadedness, shoulder pain , and head pain following a fall. Pt reports that her symptoms started at approximately 8:30pm on 04/27 after dinner while trying to go to bedroom. Began feeling lightheaded, lead to fall and hit her shoulder and R head on door. Pt fiance confirms no LOC, post-ictal confusion, or tonic-clonic movements. Pt recieved Echo, PT, and MRI during this admission. Able to rule out major cardiogenic/ neurogenic causes of her near syncopal event. Pt advised on how to obtain her medical records before seeing her spine doctor. Pt is fine to resume normal activity after discharge. - Date & Time of H&P Date of H&P: 04/30/18 Time of H&P: 05:30 Discharge Exam - Head Exam Head Exam: ATRAUMATIC, NORMOCEPHALIC - Eye Exam Eye Exam: EOMI - ENT Exam ENT Exam: Mucous Membranes Moist - Neck Exam Neck exam: Full Rom - Respiratory Exam Respiratory Exam: NORMAL BREATHING PATTERN. absent: Accessory Muscle Use, Wheezes, Respiratory Distress, Stridor - Cardiovascular Exam Cardiovascular Exam: REGULAR RHYTHM, RRR, +S1, +S2. absent: Diastolic murmur, JVD, Systolic Murmur - GI/Abdominal Exam GI & Abdominal Exam: Normal Bowel Sounds, Soft, Unremarkable. absent: Distended , Firm, Guarding, Rebound, Rigid, Tenderness - Extremities Exam Extremities exam: full ROM, pedal pulses present - Back Exam Back exam: FULL ROM. absent: CVA tenderness (L), CVA tenderness (R) Additional comments: pt reports pain to palpation, which she reports is chronic from her spinal stenosis - Neurological Exam Neurological exam: Alert, Oriented x3 - Psychiatric Exam Psychiatric exam: Normal Affect, Normal Mood - Skin Skin Exam: Dry, Normal Color, Warm Discharge Plan - Follow Up Plan Condition: FAIR Disposition: HOME/ ROUTINE Additional Instructions: 1. May return to work with activity as tolerated 2. follow up with pain management on May 14 with provided imaging
[2018-04-30 07:25] VITALS: O2SAT 96
[2018-04-30 08:11] LABS: BASO # 0.02 K/mm3 (0.0-2.0); BASO % 0.4 % (0.0-3.0); EOS # 0.1 (0.0-0.7); EOS % 2.9 % (1.5-5.0); GRAN # 2.3 (1.4-6.5); GRAN % 46.9 % (50.0-68.0); HEMOGLOBIN 11.8 g/dL (12.0-16.0); LYMPH # 2.1 (1.2-3.4); LYMPH % 42.2 % (22.0-35.0); MEAN CORPUSCULAR HEMOGLOBIN 28.6 pg (25.0-35.0); MEAN CORPUSCULAR HGB CONC 33.2 g/dl (31.0-37.0); MEAN PLATELET VOLUME 9.9 fl (7.0-11.0); MONO # 0.4 (0.1-0.6); MONO % 7.6 % (1.0-6.0); RBC 4.13 10^6/uL (3.5-6.1); RED CELL DISTRIBUTION WIDTH 12.4 % (11.5-14.5); WHITE BLOOD COUNT 4.9 10^3/ul (4.5-11.0)
[2018-04-30 08:29] LABS: ALB/GLOB RATIO 1.3 (1.1-1.8); ALBUMIN 3.5 g/dL (3.0-4.8); ALT/SGPT 17 U/L (7-56); AST/SGOT 13 U/L (14-36); BLOOD UREA NITROGEN 12 mg/dL (7-21); CALCIUM 8.8 mg/dL (8.4-10.5); GFR NON-AFRICAN AMERICAN > 60
[2018-04-30 17:53] VITALS: BP 120/77; RESP 20; TEMP 98
[2018-04-30 18:43] VITALS: PULSE 58
--- NOTE | 2018-04-30 19:30 | PN ---
Copied To: Balbir Trevino MD Attending MD: Balbir Trevino MD DATE: 04/30/2018 CARDIOLOGY FOLLOWUP SUBJECTIVE: The patient is asymptomatic. PHYSICAL EXAMINATION: VITAL SIGNS: Blood pressure 127/73, heart rate in the 60s, normal sinus rhythm. NECK: Negative JVD. LUNGS: Without rales. HEART: S1, S2. EXTREMITIES: Without edema. LABORATORY DATA: Hemoglobin is 11.8. Chemistries are unremarkable. Troponin's are negative. Echocardiogram shows good LV function. The ejection fraction is 52%. IMPRESSION: 1. Bradycardia. 2. No hemodynamic sequelae from her bradycardia. 3. History of hypertension. 4. History of asthma. 5. Echocardiogram shows good left ventricular function. Given these findings, we will discontinue telemetry today. Balbir Trevino MD
== END 2018-04-30 18:46 | disposition home or self-care (01) | DRG 149 ==
LOC: ED 23:42 → ERH 04-28 02:32 → 2RNO 04-28 03:49 → 2RSO 04-29 22:56
PROVIDERS: ADMIT Hospitalist; ATTEND Internal Medicine
DX: R42 Dizziness and giddiness (principal); M48.00 Spinal stenosis, site unspecified; R00.1 Bradycardia, unspecified; E78.00 Pure hypercholesterolemia, unspecified; I10 Essential (primary) hypertension; J45.909 Unspecified asthma, uncomplicated; I25.2 Old myocardial infarction; S09.90XA Unspecified injury of head, initial encounter; W01.198A Fall on same level from slipping, tripping and stumbling with subsequent striking against other object, initial encounter; Y92.009 Unspecified place in unspecified non-institutional (private) residence as the place of occurrence of the external cause; Z90.49 Acquired absence of other specified parts of digestive tract; D64.9 Anemia, unspecified; M25.511 Pain in right shoulder; Z98.84 Bariatric surgery status; Z83.3 Family history of diabetes mellitus; Z87.892 Personal history of anaphylaxis; Z88.6 Allergy status to analgesic agent; Z88.2 Allergy status to sulfonamides; Z91.018 Allergy to other foods; T50.995A Adverse effect of other drugs, medicaments and biological substances, initial encounter